=== PATIENT | male | born 1990 | race Asian ===

== ENCOUNTER 2022-04-01 15:14 | Emergency (ER) | payer OTHER ==
[~2022-04-01] VITALS: Ht 170.2 cm; Wt 82.0 kg
[2022-04-01 20:23] LABS: CLARITY URINE CLEAR (CLEAR); COLOR URINE YELLOW (YELLOW); KETONES URINE NEGATIVE (NEGATIVE); LEUKOCYTE ESTERASE URINE 3+ (NEGATIVE); NITRITE URINE NEGATIVE (NEGATIVE); OCCULT BLOOD URINE NEGATIVE (NEGATIVE); PH URINE 6.5 (4.5-8.0); PROTEIN URINE NEGATIVE (NEGATIVE); SPECIFIC GRAVITY URINE 1.007 (1.005-1.030); UROBILINOGEN URINE 0.2 E.U./dL (0.2-1.0)
[2022-04-01] MEDS ORDERED: AZITHROMYCIN 500 MG TABLET PO ONE (21:00)
[2022-04-01] MEDS ORDERED: CEFTRIAXONE SODIUM 500 MG/VIAL IM ONE (21:00)
[2022-04-01] MEDS ORDERED: LIDOCAINE HCL 1% 20ML VIAL (Pyxis) INJ INFIL ONE (21:15)
[2022-04-01] MEDS ORDERED: CEFP200T13 MT (21:49)
[2022-04-01 22:24] VITALS: BP 126/86
== END 2022-04-01 22:42 | disposition home or self-care (01) ==
LOC: ER 15:14
DX: N39.0 Urinary tract infection, site not specified (principal); Z98.890 Other specified postprocedural states
CPT/HCPCS: 81003; 87086; 96372; 99283; J0696; J3490